=== PATIENT | female | born 1940 | race Caucasian/White ===

== ENCOUNTER 2017-04-02 17:36 | Emergency (ER) | payer MEDICARE ==
[2017-04-02 18:34] VITALS: BP 143/72
--- NOTE | 2017-04-02 19:09 | UC ---
Hip/Pelvis Pain - HPI Summary HPI Summary: The patient comes in today for: 1. Right hip pain: Onset: 2 days ago. Palliative/provocative: Sitting down the pain is better. If she puts any weight onto the leg, the pain starts up. Quality: [place]: Right hip. Severity: 8/10 Time: Comes and goes depending on physical activity. Associated symptoms: Right hip replacement 3 weeks ago. She had this done at [facility] in [place] by Dr. Juarez. She states that she tried calling him, but did not get an answer back. She did well until 2 days ago. Fevers: None. Wound: "looks fine." * - History Of Current Complaint Chief Complaint: UCLowerExtremity Stated Complaint: HIP PAIN Time Seen by Provider: 04/02/17 18:57 Hx Obtained From: Patient, Family/Chief Wellness Officer - Allergies/Home Medications Allergies/Adverse Reactions: Allergies Allergy/AdvReac Type Severity Reaction Status Date / Time Cefuroxime [From Ceftin] Allergy Nausea And Verified 04/02/17 18:34 Vomiting Oxycodone Allergy Nausea And Verified 04/02/17 18:34 Vomiting Home Medications: Home Medications Acetaminophen [Tylenol] 1,000 mg PO TID 04/02/17 [History Confirmed 04/02/17] Aspirin [Lorraine Aspirin 325 MG] 325 mg PO BID 04/02/17 [History Confirmed ] PMH/Surg Hx/FS Hx/Imm Hx Previously Healthy: Yes Endocrine History Of: Denies: Diabetes, Thyroid Disease Cardiovascular History Of: Denies: Cardiac Disorders, Hypertension, Pacemaker/ICD, Myocardial Infarction , Congestive Heart Failure, Atrial Fibrillation, Deep Vein Thrombosis, Bleeding Disorders Respiratory History Of: Denies: COPD, Asthma, Bronchitis, Pneumonia, Pulmonary Embolism GI/ History Of: Denies: Gastroesophageal Reflux, Ulcer, Gastrointestinal Bleed, Gall Bladder Disease, Kidney Stones, Diverticulitis, Renal Disease, Urosepsis Neurological History Of: Denies: TIA, CVA, Dementia, Seizures, Migraine Psychological History Of: Denies: Anxiety, Depression, Bipolar Disorder, Schizophrenia, Post Traumatic Stress Disorder Cancer History Of: Denies: Lung Cancer, Colorectal Cancer, Breast Cancer, Prostate Cancer, Cervical Cancer Other History Of: Anticoagulant Therapy - Aspirin daily. Negative For: HIV, Hepatitis B, Hepatitis C - Surgical History Surgical History: Yes Surgery Procedure, Year, and Place: ,VAGINAL HYSTERECTOMY ,TONSILLECTOMY, Right hip replacement 2017 - Family History Known Family History: Positive: Hypertension, Diabetes - Social History Occupation: Employed Full-time, Retired Lives: With Family Alcohol Use: None Substance Use Type: None Smoking Status (MU): Never Smoked Tobacco Review of Systems Constitutional: Negative Skin: Negative Eyes: Negative ENT: Negative Respiratory: Negative Cardiovascular: Negative Gastrointestinal: Negative Genitourinary: Negative Motor: Negative All Other Systems Reviewed And Are Negative: Yes Physical Exam Triage Information Reviewed: Yes Appearance: Well-Appearing, No Pain Distress - While sitting., Well-Nourished Vital Signs: Initial Vital Signs Temp 98.6 F 04/02/17 18:26 Pulse 70 04/02/17 18:26 Resp 16 04/02/17 18:26 BP 143/72 04/02/17 18:26 Pulse Ox 99 04/02/17 18:26 Vital Signs Reviewed: Yes Eyes: Positive: Conjunctiva Clear. Negative: Discharge ENT: Positive: Hearing grossly normal - Has hearing aids.. Negative: Pharyngeal erythema, Nasal congestion, TM bulging, TM dull, TM red, Tonsillar swelling, Tonsillar exudate Dental: Negative: Gross Decay/Caries @, Dental Fracture @ Neck: Positive: Supple, Nontender, No Lymphadenopathy. Negative: Nuchal Rigidity Respiratory: Positive: Lungs clear, No respiratory distress, No accessory muscle use. Negative: Chest non-tender, Crackles, Wheezing Cardiovascular: Positive: RRR, No Murmur Abdomen Description: Positive: Nontender, No Organomegaly, Soft. Negative: Distended, Guarding, Peritoneal Signs Musculoskeletal: Positive: Strength Intact, ROM Intact, No Edema, Other: - She is able to get on the exam table by herself. She uses a cane when walking. The surgical site appears to be free of infection (no marked edema or tenderness. There is no redness or drainage. She is not tender to palpation along the side of the leg. Neurological: Positive: Alert, Muscle Tone Normal Psychological: Positive: Normal Response To Family, Age Appropriate Behavior, Consolable Skin: Negative: rashes, breakdown Diagnostics - Radiology No standard instances Xray Interpretation: No Acute Changes Radiology Interpretation Completed By: Radiologist Hip Injury Course/Dx - Course Course Of Treatment: Patient told that the x-ray of her right hip did not show any abnormality. She was told that I did not know for sure what was causing her pain and suggested that she continue to try to reach the surgeon who did the surgery. She said that she was quite relieved knowing that her x-ray was OK. - Differential Dx/Diagnosis Provider Diagnoses: Right hip pain s/p replacement. Discharge - Discharge Plan Condition: Stable Disposition: HOME Patient Education Materials: Hip Pain (ED) Additional Instructions: Please continue to try to reach the surgeon who did your surgery for the right hip. If you get worse between now and then, please go to the ER. Continue the post-operative instructions that your surgeon told you to follow between now and your follow-up evaluation with him.
--- NOTE | 2017-04-02 20:35 | RAD ---
INDICATION: Lateral hip pain 3 weeks following right total hip arthroplasty COMPARISON: None TECHNIQUE: 3 views of the right hip were obtained. FINDINGS: The right hip prosthesis is anatomically aligned in the AP and lateral projections. There is no evidence of periprosthetic fracture or loosening. Many visualized bones are intact and properly aligned. IMPRESSION: Anatomic alignment of right hip prosthesis without acute radiographic abnormality. If the patient's symptoms persist follow-up imaging is recommended.
== END 2017-04-02 21:00 | disposition home or self-care (01) ==
LOC: UCEAST 17:36
DX: M25.551 Pain in right hip (principal); Z96.641 Presence of right artificial hip joint; Z79.82 Long term (current) use of aspirin; Z90.710 Acquired absence of both cervix and uterus; Z88.1 Allergy status to other antibiotic agents; Z88.5 Allergy status to narcotic agent
CPT/HCPCS: 99211; G0463

== ENCOUNTER 2017-08-21 06:15 | Day surgery (SDC) | payer MEDICARE ==
--- NOTE | 2017-08-19 20:35 | HP ---
CC: Cecilia Cox MD * HISTORY AND PHYSICAL: DATE OF ADMISSION: 08/21/17 ADMITTING DIAGNOSIS: Bladder tumor. PLANNED PROCEDURE: Transurethral resection of bladder tumor and left stent insertion. SURGEON: Manuel Rubi MD. HISTORY OF PRESENT ILLNESS: Elizabeth Larsen is a is a 77-year-old lady who had been evaluated because she had noticed what initially had appeared to be some urethral bleeding possibly related to a small caruncle. 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 PAST MEDICAL HISTORY: Significant for hypertension. PAST SURGICAL HISTORY: Significant for right total hip replacement in March 2017 and a vaginal hysterectomy. MEDICATIONS: On admission: 1. Multivitamins. 2. Supplements. ALLERGIES: No known drug allergies. SOCIAL HISTORY: Smoking history, she is a nonsmoker. REVIEW OF SYSTEMS: She is otherwise in excellent health. There is no history of diabetes mellitus or any other major systemic illness. PHYSICAL EXAMINATION GENERAL: Reveals a pleasant, healthy-appearing elderly lady. VITAL SIGNS: Blood pressure is 160/80, pulse 71 per minute and regular, oxygen saturation 96% on room air, temperature 96.7. LUNGS: Clear bilaterally. CARDIOVASCULAR: Regular rate and rhythm. S1, S2. ABDOMEN: Soft without masses. IMPRESSION: A 77-year-old nonsmoker with superficial appearing bladder tumors adjacent to the left orifice. PLAN: Transurethral resection of bladder tumors and left stent insertion. I have discussed the procedure in detail with Ms. Larsen and all her questions have been answered. [id number]/[facility] #: [id number] [facility]
[~2017-08-21 06:15] MED LIST: Buffered Lidocaine 0.9% SYRIN* 5 ML/SYR SYRINGE INTRADERM ONE; Famotidine IV* 10 MG/ML 2 ML (20 mg) IV ONE
[2017-08-21] MEDS ORDERED: Famotidine IV* 10 MG/ML 2 ML (20 mg) ONE (06:25)
[2017-08-21] MEDS ORDERED: Buffered Lidocaine 0.9% SYRIN* 5 ML/SYR SYRINGE ONE (06:25)
[2017-08-21] MEDS ORDERED: Levofloxacin 500 MG IVPREMIX(* 500 MG/100 ML BAG IVPB ONE (06:25)
[2017-08-21] MEDS ORDERED: Iohexol 180 (CONTRAST) 10 ML SDV IV ONE ×2 (07:20→08:27)
[2017-08-21] MEDS ORDERED: fentaNYL* 50 MCG/ML 2 ML VIAL (100 MCG VIAL) ONE (07:38)
[2017-08-21] MEDS ORDERED: Midazolam* 1 MG/ML 5 ML VIAL (5 MG) ONE (07:38)
[2017-08-21] MEDS ORDERED: DiMENhydriNATE IV* 50 MG/ML VIAL ONE (07:41)
[2017-08-21] MEDS ORDERED: Dexamethasone IV* 4 MG/ML 1 ML (4 MG) ONE (07:41)
[2017-08-21] MEDS ORDERED: Ketorolac INJ* 30 MG/ML 1 ML VIAL ONE (07:41)
[2017-08-21] MEDS ORDERED: Propofol* 10 MG/ML 20 ML BTL IV PUSH ONE (07:41)
[2017-08-21] MEDS ORDERED: Ondansetron INJ* 2 MG/ML VIAL ONE (07:41)
[2017-08-21] MEDS ORDERED: Lidocaine 2% PF * 5 ML VIAL ONE (07:41)
[2017-08-21] MEDS ORDERED: DiMENhydriNATE IV* 50 MG/ML VIAL IV PUSH PRN (07:50)
[2017-08-21] MEDS ORDERED: HYDROmorphone INJ* 1 MG/ML CARPUJECT SYRINGE IV PRN (07:50)
[2017-08-21] MEDS ORDERED: Acetaminophen TAB* 325 MG PO PRN (07:50)
[2017-08-21] MEDS ORDERED: Furosemide IV* 10 MG/ML 2 ML VIAL (20 MG) ONE ×2 (09:25→09:38)
--- NOTE | 2017-08-21 09:43 | RAD ---
INDICATION: [place], left-sided stent insertion COMPARISONS: None relevant available at the time of dictation TECHNIQUE: Fluoroscopy was provided for a retrograde pyelogram and stent placement. Total fluoroscopy time is: 11 seconds FINDINGS: Spot images demonstrate contrast within the renal collecting system. A ureteral stent is noted. IMPRESSION: FLUOROSCOPY WAS PROVIDED FOR A RETROGRADE PYELOGRAM AND STENT PLACEMENT CPT II Codes: 6045F
[2017-08-21 10:55] VITALS: BP 157/79
--- NOTE | 2017-08-21 20:43 | OP ---
CC: Dr. Cecilia Cox; Dr. Rubi OPERATIVE REPORT: DATE OF OPERATION: 08/21/17 DATE OF : 44 SURGEON: Manuel Rubi MD ANESTHESIOLOGIST: Debra Denton MD ANESTHESIA: General. PRE-OP DIAGNOSIS: Bladder tumors (appearance consistent with superficial transitional cell carcinom a). POST-OP DIAGNOSIS: Bladder tumors (appearance consistent with superficial transitional cell carcino ma). OPERATIVE PROCEDURE: 1. Cystoscopy, transurethral resection, and fulguration of bladder tumors (4 to 5 cm aggregate). 2. Left retrograde and left stent insertion. INDICATIONS: Elizabeth Larsen is a 77-year-old lady, who had been evaluated and noted to have the above-m entioned findings on office cystoscopy. COMPLICATIONS: None. STENT USED: 6-Tristanian stent, left ureter. OPERATIVE FINDINGS: Papillary tumors adjacent to left orifice with appearance consistent with super ficial transitional cell carcinoma. POSTOPERATIVE CONDITION: Stable. DESCRIPTION OF PROCEDURE: After induction of general anesthesia, the patient was placed in dorsal l ithotomy position. Sequential compression devices were in place and functioning. Initial evaluatio n revealed a small urethral caruncle. The bladder was then examined. Adjacent to the left orifice, there was a cluster of papillary superficial appearing bladder tumors. There was no evidence of an y invasive-appearing tumor. Because of the proximity of these tumors to the left orifice, decision had been made to place a left stent. A left retrograde pyelogram was performed. Initially, there w as a filling defect in the distal left ureter, which I strongly suspected was an air bubble and furt her injection of contrast, it indeed was proven to be an air bubble. Remainder of the retrograde wa s unremarkable. A 6-Tristanian stent was introduced and positioned under fluoroscopy with good proximal and distal positioning obtained. Next, attention was directed to the bladder tumors. Security Control Center Operator biopsies were obtained and sent for histopathology. Next, the resectoscope was introduced and all of the visible tumor was resected down to muscle. Hemostasis was secured using the coagulating current. At the end of the procedure , there was no remaining visible tumor and no evidence of bladder perforation. A 20-Tristanian Dixon ca theter was placed for bladder drainage. The patient tolerated the procedure satisfactorily and was transferred back to the recovery area in stable condition. [id number]/[facility] #: [id number]
== END 2017-08-21 10:47 | disposition home or self-care (01) ==
LOC: OR 06:15
PROVIDERS: ATTEND Urology
DX: C67.9 Malignant neoplasm of bladder, unspecified (principal); Z96.0 Presence of urogenital implants; I10 Essential (primary) hypertension
CPT/HCPCS: 74420; 88305; C1876; J1100; J1240; J1885; J1940; J1956; J2250; J2405; J2704; J3010

== ENCOUNTER 2019-03-01 00:57 | Emergency (ER) | payer MEDICARE ==
[2019-03-01 01:06] VITALS: BP 159/84
[2019-03-01] MEDS ORDERED: Acetaminophen TAB* 325 MG PO ONE (01:13)
--- NOTE | 2019-03-01 01:47 | ED ---
Upper Extremity Pain - HPI Summary HPI Summary: 78-year-old female presents with right wrist injury today. States she fell on her outstretched hand. She states her wrist started to swelling. She has full range of motion with pain. Denies any Numbness or tingling. no previous fracture to the area. Has history of bladder cancer in remission. She is not taking any recent illness. Denies any elbow pain. No other injury. - History of Current Complaint Chief Complaint: EDExtremityUpper Stated Complaint: FELL ON WRIST PER PT Time Seen by Provider: 03/01/19 01:08 - Allergies/Home Medications Allergies/Adverse Reactions: Allergies Allergy/AdvReac Type Severity Reaction Status Date / Time MS Cefuroxime [From Ceftin] Allergy Nausea And Verified 08/21/17 06:34 Vomiting MS Oxycodone [Oxycodone] Allergy Nausea And Verified 08/21/17 06:34 Vomiting PMH/Surg Hx/FS Hx/Imm Hx Endocrine/Hematology History: Reports: Hx Anticoagulant Therapy - Aspirin daily. , Hx Thyroid Disease - LIAM'S- NO MEDICATION FOR Denies: Hx Diabetes Cardiovascular History: Reports: Hx Hypertension - BORDERLINE-TO SEE Demetrice URIARTE AT THE END OF THE MONTH Denies: Hx Congestive Heart Failure, Hx Deep Vein Thrombosis, Hx Myocardial Infarction, Hx Pacemaker/ICD Respiratory History: Denies: Hx Asthma, Hx Chronic Obstructive Pulmonary Disease (COPD), Hx Lung Cancer, Hx Pneumonia, Hx Pulmonary Embolism GI History: Denies: Hx Gall Bladder Disease, Hx Gastrointestinal Bleed, Hx Ulcer, Hx Urosepsis History: Denies: Hx Kidney Stones, Hx Renal Disease Musculoskeletal History: Reports: Hx Arthritis - HIP AND LOWER BACK, SHOULDERS Denies: Hx Osteoporosis Sensory History: Reports: Hx Contacts or Glasses - GLASSES, Hx Hearing Aid - BILATERAL Opthamlomology History: Reports: Hx Contacts or Glasses - GLASSES Neurological History: Denies: Hx Dementia, Hx Migraine, Hx Seizures, Hx Transient Ischemic Attacks (TIA) Psychiatric History: Denies: Hx Anxiety, Hx Depression, Hx Schizophrenia, Hx Bipolar Disorder - Cancer History Hx Chemotherapy: No Hx Radiation Therapy: No - Surgical History Surgery Procedure, Year, and Place: VAGINAL HYSTERECTOMY ,TONSILLECTOMY, Right hip replacement 2017 Hx Anesthesia Reactions: No Infectious Disease History: No Infectious Disease History: Denies: Hx Clostridium Difficile, Hx Hepatitis, Hx Human Immunodeficiency Virus (HIV), Hx of Known/Suspected MRSA, Hx Shingles, Hx Tuberculosis, Hx Known/ Suspected VRE, Hx Known/Suspected VRSA, History Other Infectious Disease, Traveled Outside the [place] in Last 30 Days - Family History Known Family History: Positive: Hypertension, Diabetes - Social History Alcohol Use: None Substance Use Type: Reports: None Smoking Status (MU): Never Smoked Tobacco Have You Smoked in the Last Year: No Review of Systems Negative: Fever Negative: Chest Pain Negative: Shortness Of Breath Positive: Myalgia - right wrist pain All Other Systems Reviewed And Are Negative: Yes Physical Exam Triage Information Reviewed: Yes Vital Signs On Initial Exam: Initial Vitals Temp Pulse Resp BP Pulse Ox 98 F 59 18 159/84 98 03/01/19 01:01 03/01/19 01:01 03/01/19 01:01 03/01/19 01:01 03/01/19 01:01 Vital Signs Reviewed: Yes Appearance: Positive: Well-Appearing Skin: Positive: Warm, Dry Head/Face: Positive: Normal Head/Face Inspection Eyes: Positive: Normal, Conjunctiva Clear ENT: Positive: Pharynx normal Respiratory/Lung Sounds: Positive: Clear to Auscultation, Breath Sounds Present Cardiovascular: Positive: Normal, RRR Musculoskeletal: Positive: Other - edema to right wrist, good pulses, tenderness over radius, neg snuff box tenderness, sensation grossly intact Neurological: Positive: Normal Psychiatric: Positive: Normal Procedures - Splinting wrist Location: right wrist Hand-Made Type: orthoglass Splint: volar Pre-Proc Neuro Vasc Exam: normal Post-Proc Neuro Vasc Exam: normal Diagnostics - Vital Signs Vital Signs Temp Pulse Resp BP Pulse Ox 03/01/19 01:01 98 F 59 18 159/84 98 - Laboratory Lab Statement: Any lab studies that have been ordered have been reviewed, and results considered in the medical decision making process. - Radiology wrist Radiology Interpretation Completed By: ED Physician Summary of Radiographic Findings: radius fracture Course/Dx - Course Course Of Treatment: 78-year-old female presents with right wrist injury today. States she fell on her outstretched hand. She states her wrist started to swelling. She has full range of motion with pain. Denies any Numbness or tingling. no previous fracture to the area. Has history of bladder cancer in remission. She is not taking any recent illness. Denies any elbow pain. No other injury. On exam has swelling of right wrist. Neurovascular intact. X- ray shows a radius fracture. Patient requested that I not immobilized elbow so placed in a volar splint. Told to follow-up with orthopedic. Patient is requesting only Tylenol and ibuprofen for pain. Told ice elevate. Patient understands agrees with plan. - Diagnoses Differential Diagnosis/HQI/PQRI: Positive: Fracture (Closed), Strain, Sprain Provider Diagnoses: Radial fracture Discharge - Sign-Out/Discharge Documenting (check all that apply): Patient Departure Patient Received Moderate/Deep Sedation with Procedure: No - Discharge Plan Condition: Good Disposition: HOME Patient Education Materials: Wrist Fracture in Adults (ED) Referrals: Cecilia Uriarte MD [Primary Care Provider] - Karri Avalos MD [Medical Doctor] - Additional Instructions: Keep elbow in sling as needed Keep splint on area and keep dry Call ortho office tomorrow to set up appointment for follow up Use ibuprofen or tyenlol for pain every 6 hours Ice, elevate Return to ED if develop any new or worsening symptoms - Billing Disposition and Condition Condition: GOOD Disposition: Home
== END 2019-03-01 02:00 | disposition home or self-care (01) ==
LOC: ED 00:57
DX: S52.571A Other intraarticular fracture of lower end of right radius, initial encounter for closed fracture (principal); S52.614A Nondisplaced fracture of right ulna styloid process, initial encounter for closed fracture; W19.XXXA Unspecified fall, initial encounter; Y92.9 Unspecified place or not applicable; E06.3 Autoimmune thyroiditis; I10 Essential (primary) hypertension; Z79.82 Long term (current) use of aspirin; M16.10 Unilateral primary osteoarthritis, unspecified hip; M47.816 Spondylosis without myelopathy or radiculopathy, lumbar region; M19.012 Primary osteoarthritis, left shoulder; M19.011 Primary osteoarthritis, right shoulder; Z85.51 Personal history of malignant neoplasm of bladder; Z88.1 Allergy status to other antibiotic agents; Z88.5 Allergy status to narcotic agent; Z96.641 Presence of right artificial hip joint
CPT/HCPCS: 99282; A9270-GY

== ENCOUNTER → 2019-06-03 06:37 | Day surgery (SDC) | payer MEDICARE ==
--- NOTE | 2019-06-02 22:25 | HP ---
HISTORY AND PHYSICAL: DATE OF ADMISSION: 06/03/19 This is a history and physical for a procedure being done on 06/03/19. HISTORY OF PRESENT ILLNESS: The patient is a 78-year-old woman, now approximately 3 months status post on 02/28/19 right distal radius fracture, minimally displaced, treated nonoperatively, who developed carpal tunnel syndrome, who is presenting for a planned right open carpal tunnel release. The patient is right hand dominant. She tripped and fell, sustaining the above - mentioned fracture. She was visiting a friend in the hospital and leaned on to the foot piece of a recliner when she slipped and landed on to her right hand. She went down to the emergency room where x-rays were obtained, a fracture was diagnosed and a splint was placed. The patient was met by me in clinic on 03/03/19. X-rays of the wrist at that day in clinic showed some minimal loss of radial height and inclination and approximately 15 degrees of dorsal tilt. The patient and I discussed nonoperative and operative management, the operative management being a volar locking plate. I discussed the pros and cons of nonoperative and of operative management. The patient opted for nonoperative treatment. We placed a short-arm cast using fiberglass. The patient then presented 3 weeks out from her fracture for followup on . The patient noted at that clinic visit that her pain had decreased with time , but that she had started to have some right thumb numbness. She thought that this was perhaps because the cast was too tight around the base of the thumb, limiting her motion. The patient had been working on digital range of motion while in the cast. I noted in that note that the patient was neurovascularly intact including sensation intact to light touch about the right thumb. In that clinic visit, I thought that the patient had some additional dorsal tilt , I measured it at 20 degrees with still some mild loss of radial inclination and height. A new short-arm cast was placed. On 04/05/19, the patient noted that her right thumb numbness had continued, but no other numbness or tingling. X-rays were unchanged with regarding to alignment and the patient at this point, approximately 5 weeks from her fracture , was placed in a removable wrist brace for 3 weeks. The patient then followed up on 05/03/19. This appointment, she described some decreased sensation about the thumb, but also some numbness and tingling about the index and long fingers and even occasionally in the ring finger. I reviewed again the onset of the patient's symptoms. It was not with her initial ER splint, but was appreciated when she was in a cast, over 3 days postfracture. It had slowly increased in area over time and had not been associated with a sharp onset nor significant pain early after her fracture, so I would not describe this as a traumatic carpal tunnel syndrome. I described this as a carpal tunnel syndrome after having sustained a fracture treated nonoperatively. On 05/03/19 clinic visit, we discussed management of carpal tunnel syndrome, nonoperative and operative. We decided to follow her symptoms and to follow up in 6 weeks to see if surgery might be required. The patient had plans to leave town in June and so presented earlier than expected to clinic with me on 05/31/19. The patient was concerned that with activity, her numbness had increased recently. As well, she and her physical therapist had noted some weakness in pinched thumb and index finger. The patient's next scheduled physical therapy visit was in July. The patient states that her wrist gets sore with activity and she uses the wrist a lot. With regards to range of motion, she feels that her wrist range of motion has improved a lot with the exception of wrist flexion. She describes decreased sensation about the thumb all the time and with activity also of the index, long and ring fingers. The patient was interested today in signing up for carpal tunnel release surgery. PAST MEDICAL HISTORY: Bladder cancer, in remission. PAST SURGICAL HISTORY: Hysterectomy over 30 years ago, right total hip arthroplasty in 2017, excision of bilateral cataracts in 2019. MEDICATIONS: 1. Fish oil. 2. Vitamin D. ALLERGIES: No known drug allergies. FAMILY HISTORY: Diabetes mellitus, Parkinson's and cerebrovascular accident. SOCIAL HISTORY: The patient lives at home with her . She is a retired nurse. She denies alcohol, tobacco or recreational drug use. Right hand dominant. Exercises with yoga and yard work. REVIEW OF SYSTEMS: This was significant for urinary urgency and a history of bladder cancer. Complete 14-point review of systems was otherwise negative. PHYSICAL EXAMINATION GENERAL: In no acute distress, alert and oriented, appropriate mood and affect , appropriate dressing and hygiene, nonantalgic gait, well coordinated bilateral upper and lower extremities. EXTREMITIES: Right upper extremity exam reveals some mild soft tissue swelling about the wrist. Range of motion of wrist is 60 degrees of extension to 30 degrees of flexion passively and actively. The patient has significantly reduced sensation to the volar aspect of the right thumb. Sensation intact to the rest of the fingers. Positive Tinel's and Durkan's test. The patient had decreased pinch strength, between the thumb and index finger indicating weakness of AIN innervated muscles. Also clearly has thenar muscle weakness with a resisted palmar abduction. DIAGNOSTIC STUDIES: Imaging: X-rays of the right wrist from 05/03/19 demonstrate much sclerosis about the fracture site of the distal radius with some dorsal tilt approximately 20 degrees. ASSESSMENT: 1. Right distal radius fracture, displaced, treated nonoperatively, fracture sustained on 02/28/19. 2. Right carpal tunnel syndrome. PLAN: 1. This patient clearly has carpal tunnel syndrome that has worsened since the last clinic appointment. Along with decreased sensation, about the thumb that she has constantly, she had significant weakness on exam today in median nerve innervated muscles. Therefore, there is a clear indication for carpal tunnel release surgery. 2. To the operating room for right open carpal tunnel release surgery on . 3. The patient will follow up with me in clinic postoperatively. As she will be travelling, I will have her see a nurse or doctor for stitch removal 10 to 14 days postoperatively and we will communicate by phone to discuss her recovery and the status of her wound. I will see her when she returns to the [facility] at the end of June or early July. 4. The patient and her discussed touching base with primary care physician to assure preoperative optimization. [id number]/[facility] #: [id number] [facility]
[~2019-06-03 06:37] MED LIST changes: +Acetaminophen TAB* 325 MG PO PRN; -Buffered Lidocaine 0.9% SYRIN* 5 ML/SYR SYRINGE INTRADERM ONE; +Buffered Lidocaine 1% SYRIN* 1 ML/SYRINGE INTRADERM ONE; +Bupivacaine 0.25% SDV PF* 10 ML VIAL INJ ONE; +DiMENhydriNATE IV* 50 MG/ML VIAL IV PUSH PRN; -Famotidine IV* 10 MG/ML 2 ML (20 mg) IV ONE; +Ibuprofen TAB* 400 MG PO PRN; +Lactated Ringers 1000 ML Bag* 1,000 ML IV SCH; +Lidocaine 1% INJ* 10 MG/ML 30 ML SDV ONE; +Lidocaine 1% w EPI 1:100,000* 30 ML VIAL ONE; +Lidocaine 2% PF * 5 ML VIAL ONE; +Midazolam* 1 MG/ML 2 ML VIAL (2 MG) ONE; +Naloxone* 0.4 MG/ML 1 ML VIAL IV PRN; +Ondansetron INJ* 2 MG/ML VIAL IV PRN; +Propofol* 10 MG/ML 20 ML BTL ONE; +ceFAZolin 2 GM in NS PREMIX(*) 2 GM/100 ML BAG IVPB ONE; +fentaNYL* 50 MCG/ML 2 ML VIAL (100 MCG VIAL) IV PRN; +fentaNYL* 50 MCG/ML 2 ML VIAL (100 MCG VIAL) ONE
[2019-06-03 10:13] VITALS: BP 170/73
--- NOTE | 2019-06-05 06:27 | OP ---
OPERATIVE NOTE: DATE OF OPERATION: 06/03/19. DATE OF : 44. SURGEON: Keron Major M.D. PATROL MOTHER: SUSIE Merlos A physician therapeutic recreation assistant was required for the length of the procedure for assistance with the patient po sitioning, retraction, and closure. ANESTHESIOLOGIST: Dr. Star Curry. ANESTHESIA: Monitored anesthesia care and local anesthesia, 10 cc of a 1:1 ratio of Marcaine 0.5% wi th epinephrine and lidocaine 1%. PRE-OP DIAGNOSES: 1. Right carpal tunnel syndrome. 2. Right distal radius fracture, nonoperative treatment, on 02/28/19. POST-OP DIAGNOSES: 1. Right carpal tunnel syndrome. 2. Right distal radius fracture, nonoperative treatment, on 02/28/19. OPERATIVE PROCEDURE: Right open carpal tunnel release. ANTIBIOTICS: Ancef 1 g IV. IV FLUIDS: See Anesthesia note. TOURNIQUET TIME: 20 minutes at 250 mmHg, right upper arm. PLLO-DX-MNVI TIME: 17 minutes. SPECIMEN: None. IMPLANTS: None. COMPLICATIONS: None. ESTIMATED BLOOD LOSS: Minimal. INDICATIONS FOR PROCEDURE: The patient is a 78-year-old woman, right-hand dominant, who sustained a fracture on 02/28/19. This was managed nonoperatively in a splint and then cast. While in the cast, the patient developed some numbness about the thumb. Over time, the symptoms have worsened includin g some intermittent numbness and tingling in the index, long, and ring fingers as well as some weakne ss. At her last exam with in the clinic 2 days ago, she had both thenar muscle weakness, and finger pinch weakness, AIN innervated muscles. I made the diagnosis in clinic based on history and exam of carpal tunnel syndrome and the patient opted for surgery. I discussed risks and potential complicati ons of surgery. DESCRIPTION OF PROCEDURE: In preoperative holding, the patient signed a written consent. Operative extremity was marked in the preoperative holding. The patient was taken back to the operating room a nd kept on a stretcher. Hand table was applied. The patient was sedated. A mini time-out was perfo rmed. Next, I performed the local anesthesia injection in my standard fashion in the distal forearm and then wrist, 10 cc of 1:1 ratio of lidocaine and Marcaine as stated above. The patient was next prepped and draped. Formal surgical time-out was performed. I next applied an Esmarch and elevated the tourniquet to 250 mmHg. I extended the wrist. I made a standard carpal tunnel open incision after identifying all relevant s kin and bony landmarks. I dissected down through subcutaneous tissue and longitudinal fascia. I shun ched the transverse carpal ligament. I cleared off the transverse carpal ligament proximal and dista l. I incised the transverse carpal ligament staying ulnar, but not too ulnar, as I clearly identifie d the hook of the hamate. The transverse carpal ligament in this patient was notable for being parti cularly thick from superficial to deep in particularly robust. I incised through the ligament. I co ntinued my release distal with a deep knife blade. Only after much of the ligament had been incised did it start to retract, its edges start to retract. I released the ligament to its distal end with nice fat visible distally. I then removed proximally. I cleared off the transverse carpal ligament superficial and deep to it, and then released it into the distal forearm. The ends of the transverse carpal ligament retracted f ar apart. There was much synovitis where a reasonable amount of synovitis noted in the carpal tunnel . I was able to move very easily with the freer into the distal forearm, so I did not think an addit ional more proximal release was required of the median nerve at the level of the distal radius fractu re. Irrigation. The closure of the skin with horizontal mattress and simple stitches using nylon 4-0 sut ure. Xeroform, 4x4s, bulky Webril dressing followed by Florinan. The patient was lightened off sedation and sent to the PACU. DISPOSITION: The patient will stay in the dressing for 3 days postoperatively and then change it. T he patient will take tramadol as needed for pain control. We will follow up with the patient several days from now by telephone. The patient will be going out of town shortly. Therefore, at about 14 days postoperatively, she will call me with an update and she will see a nurse, nurse practitioner or doctor near [facility] where she will be to have her stitches removed. The patient will then fo llow up with me in clinic in early July 2019 when she returns to the [facility]. [id number]/[facility] #: [id number]
== END | disposition home or self-care (01) ==
LOC: OR 06:37
PROVIDERS: ATTEND Orthopaedic Surgery
DX: G56.01 Carpal tunnel syndrome, right upper limb (principal); Z85.51 Personal history of malignant neoplasm of bladder; S52.501S Unspecified fracture of the lower end of right radius, sequela; W18.09XS Striking against other object with subsequent fall, sequela; Y92.239 Unspecified place in hospital as the place of occurrence of the external cause; M19.90 Unspecified osteoarthritis, unspecified site; E06.3 Autoimmune thyroiditis; R03.0 Elevated blood-pressure reading, without diagnosis of hypertension
CPT/HCPCS: J0690; J2250; J2704; J3010; J3490